=== PATIENT | female | born 1940 | race Caucasian/White ===

== ENCOUNTER 2018-12-20 14:18 | Inpatient (IN) | payer MEDICARE, OTHER | END 2018-12-25 16:00 | LOC: MED 3N 12-23 10:45 → ER 14:18 → ORTHO 4S 12-22 14:42 → ED HOLD 16:44 → CICU 2S 22:34 | PROC: 3E03317 Introduction of Other Thrombolytic into Peripheral Vein, Percutaneous Approach (ICD-10-PCS; principal; ~2018-12-20) | PROC: 02703ZZ Dilation of Coronary Artery, One Artery, Percutaneous Approach (ICD-10-PCS; ~2018-12-20) | PROC: 4A023N8 Measurement of Cardiac Sampling and Pressure, Bilateral, Percutaneous Approach (ICD-10-PCS; ~2018-12-20) | DX: I63.9 Cerebral infarction, unspecified (principal); I21.4 Non-ST elevation (NSTEMI) myocardial infarction; I69.354 Hemiplegia and hemiparesis following cerebral infarction affecting left non-dominant side; I42.0 Dilated cardiomyopathy; I10 Essential (primary) hypertension ==